=== PATIENT | female | born 2000 | race Caucasian/White ===

== ENCOUNTER 2023-06-06 13:15 | Outpatient (CLI) | payer OTHER ==
[2023-06-06 18:14] LABS: HCG,QUALITATIVE BLOOD NEGATIVE
[2023-06-06 20:52] LABS: CHLAMYDIA TRACHOMATIS DNA NEGATIVE (NEGATIVE); NEISSERIA GONORRHOEAE DNA NEGATIVE (NEGATIVE); TRICHOMONAS VAGINALIS DNA NEGATIVE (NEGATIVE)
[2023-06-07 05:11] LABS: HCV AB Non Reactive (Non Reactive)
[2023-06-07 06:09] LABS: HIV SCREEN 4TH GENERATION Non Reactive (Non Reactive); RPR Non Reactive (Non Reactive)
== END 2023-06-06 13:30 | disposition home or self-care (01) ==
LOC: LAB.N 13:15
PROVIDERS: ATTEND Physician Assistant Medical
DX: R30.0 Dysuria (principal)
CPT/HCPCS: 36415; 84703; 86592; 86803; 87086; 87389; 87491; 87591; 87661